=== PATIENT | female | born 1950 ===

== ENCOUNTER 2024-08-14 06:06 | Day surgery (SDC) | payer MEDICARE, OTHER, SELFPAY ==
[2024-08-14] VITALS (11 sets, daily range): BP systolic 129–154; BP diastolic 60–86; BMI 27.5
--- NOTE | 2024-08-14 06:43 | HP.FOC2 ---
Focused History & Physical
Chief Complaint
HPI:
Chief Complaint: Symptomatic cholelithiasis
HPI / Indication for Planned Procedure: Patient is a 73-year-old female recently seen in outpatient surgical evaluation secondary to history of intermittent bouts of postprandial right upper quadrant abdominal pain. Associates her symptoms with
fatty food, spicy or salty foods. With more severe episodes she has nausea and the pain will last a few hours until subsequently subsiding. No change in her bowels. Ultrasound imaging confirms multiple gallstones but no gallbladder wall
thickening or pericholecystic edema. Common bile duct 2 mm. Liver function profile testing was within normal limits. She presents today for cholecystectomy
Relevant Past Medical History: Other (Hypertension, hypercholesterolemia, GERD, history of gastritis,)
Relevant Social History: Negative
Relevant Family History: Negative
Relevant Past Surgical History: Positive for (Partial thyroidectomy, JOSELO/bladder left)
Review of Systems
Review of Pertinent Systems: All Systems Negative
Medication
See Medication form for detailed medications: Yes
Medication List (including Herbals & OTC):
acetaminophen 650 mg tablet,extended release (Tylenol Arthritis Pain) 650 mg PO Q8H PRN pain 08/11/24
aspirin 81 mg capsule 81 mg PO DAILY 08/11/24
atenolol 50 mg tablet 50 mg PO DAILY 08/11/24
chlorthalidone 25 mg tablet 25 mg PO DAILY 08/11/24
cholecalciferol (vitamin D3) 50 mcg (2,000 unit) tablet (Vitamin D3) 50 mcg PO DAILY 08/11/24
losartan 50 mg tablet 50 mg PO HS 08/11/24
oxybutynin chloride 5 mg tablet 5 mg PO HS 08/11/24
pantoprazole 40 mg tablet,delayed release 40 mg PO DAILY 08/11/24
rosuvastatin 10 mg tablet 10 mg PO HS 08/11/24
sennosides 8.6 mg tablet (senna) 17.2 mg PO DAILY 08/11/24
zolpidem 5 mg tablet 5 mg PO PRN PRN INSOMNIA/ANXIETY 08/11/24
Medications Reviewed: Yes
Allergies and Reactions
Patient has Allergies: No
Noted Allergies and Reactions:
Allergy/AdvReac Type Severity Reaction Status Date / Time
No Known Allergies Allergy Verified 08/11/24 14:13
Pertinent Physical Exam
All Other Systems: Negative
Head/Neck: Normal
Lungs: Normal
Heart: Normal
Abdomen: Normal
Extremities: Normal
Neurological: Normal
Diagnosis / Assessment
73-year-old female presenting for cholecystectomy secondary to history of symptomatic cholelithiasis
Plan / Procedure
Robotic assisted laparoscopic cholecystectomy
Anesthesia/Sedation to be done by Anesthesia Provider: Yes
--- NOTE | 2024-08-14 06:46 | W.SUR.PREOP ---
Pre-Operative Surgical Note
-
I have examined this patient prior to the performance of the scheduled procedure.
The patient's condition is unchanged from the time of the current History and
Physical and the patient is able to undergo the scheduled procedure.
[2024-08-14] MEDS: IC GREEN 2.5 MG IV (07:09)
[2024-08-14] MEDS: NORMOSOL-R/PLASMALYTE-A 1000 IV (07:10)
--- NOTE | 2024-08-14 10:01 | W.IMMPOSTOP ---
Addendum entered and electronically signed by Nacho Somers MD 08/14/24 11:48:
#[id number]
Original Note:
Surgical Immed Post Op Note
-
Primary Surgeon: Nacho Somers MD
Assisting Surgeon: Devonte MITCHELL
Pre-op Diagnosis: Symptomatic cholelithiasis
Post-op Diagnosis: Chronic calculus cholecystitis
Procedure Performed: Robotic assisted laparoscopic cholecystectomy
Anesthesia Type: GETA +0.25% Marcaine
Specimen / Cultures: Gallbladder
Estimated Blood Loss: 8 mL
Complications: None immediate
Operative Findings: Chronically inflamed gallbladder completely encased within omental and periduodenal fibrotic adhesions. Gallbladder full of stones and tensely contracted around stones indicating chronic cystic duct obstruction. No disruption
of gallbladder during cholecystectomy. Cystic duct isolated and confirmed with assistance of intraoperative fluorescein imaging. Cystic artery and duct individually controlled with Weck clips. Gallbladder extracted at infraumbilical midline
trocar site.
== END 2024-08-14 12:11 | disposition home or self-care (01) ==
LOC: SDS 06:06
PROVIDERS: ATTENDING PHYSICIAN Surgery
DX: K80.12 Calculus of gallbladder with acute and chronic cholecystitis without obstruction (principal)
CPT/HCPCS: 47562; 88304